=== PATIENT | male | born 1985 | race Asian ===

== ENCOUNTER 2024-12-16 22:46 | Emergency (ER) | payer OTHER ==
[2024-12-16] MEDS ORDERED: Sodium Chloride 0.9% 10 ML Syringe FLUSH PRN (23:07)
[2024-12-16] MEDS ORDERED: Glucagon,Human Recombinant 1 MG Vial IM PRN (23:13)
[2024-12-16] MEDS ORDERED: 50% Dextrose in Water 50 ML Syringe IVPUSH PRN (23:13)
[2024-12-16 23:16] LABS: BASOPHILS ABSOLUTE AUTO 0.1 x10-3/uL (0.0-0.3); BASOPHILS PERCENT AUTO 0.8 % (0.3-3.8); EOSINOPHILS PERCENT AUTO 0.2 % (0.1-6.8); HEMATOCRIT 38.1 % (38.3-50.1); HEMOGLOBIN 13.1 g/dL (12.9-17.7); LYMPHOCYTES ABSOLUTE AUTO 2.5 x10-3/uL (0.5-4.5); MEAN CORPUSCULAR HEMOGLOBIN 29.8 pg (27.0-33.3); MEAN CORPUSCULAR HGB CONC 34.5 g/dL (28.7-35.3); MEAN CORPUSCULAR VOLUME 86.3 fL (80.8-98.7); MEAN PLATELET VOLUME 9.5 fL (6.7-11.0); MONOCYTES ABSOLUTE AUTO 0.8 x10-3/uL (0.0-1.2); MONOCYTES PERCENT AUTO 9.2 % (5.5-15.2); NEUTROPHILS ABSOLUTE AUTO 5.2 x10-3/uL (1.7-6.9); NEUTROPHILS PERCENT AUTO 60.8 % (40.3-71.8); PLATELET COUNT,PLT 218 x10(3)uL (117-477); RED BLOOD CELL COUNT 4.41 x10(6)uL (3.90-5.90); RED CELL DISTRIBUTION WIDTH 11.8 % (12.4-15.0); WHITE BLOOD CELL COUNT,WBC 8.6 x10-3/uL (3.2-10.1)
[2024-12-16 23:18] LABS: BLOOD UREA NITROGEN,BUN 10 mg/dL (7-18); BUN/CREATININE RATIO 9.1 (9-20); CALCIUM 8.9 mg/dL (8.6-10.2); CARBON DIOXIDE,CO2 30 mmol/L (21-32); CHLORIDE,CL 94 mmol/L (100-110); CREATININE 1.1 mg/dL (0.70-1.30); EST CRCL DRUG DOSING (CG) 97.98 mL/min; ESTIMATED GFR 87 mL/min (>60); GLUCOSE RANDOM 331 mg/dL (80-116); POTASSIUM,K 3.9 mmol/L (3.5-5.3); SODIUM,NA 133 mmol/L (135-145)
[2024-12-16] MEDS: Sodium Chloride 0.9% 1,000 ML IV SCH (23:18)
[2024-12-16] MEDS: Insulin Lispro 100 Unit/ML 3 ML KwikPen SUBCUT STA (23:21)
[2024-12-16 23:25] LABS: A/G RATIO 0.9; ALANINE AMINOTRANSFERASE,ALT 40 U/L (12-36); ALBUMIN 3.8 g/dL (3.5-5.2); ALKALINE PHOSPHATASE 69 IU/L (56-112); ASPARTATE AMNIOTRANSFERASE,AST 29 IU/L (5-25); BILIRUBIN TOTAL 0.4 mg/dL (0.1-1.3); PROTEIN TOTAL,TP 7.9 g/dL (6.0-8.0)
[2024-12-16 23:27] LABS: HEMOGLOBIN A1C 11.9 % (<5.7)
== END 2024-12-17 00:34 ==
LOC: FB.ED 22:46
DX: E11.9 Type 2 diabetes mellitus without complications (principal); Z79.84 Long term (current) use of oral hypoglycemic drugs
CPT/HCPCS: 36415; 80053; 82947; 83036; 84484; 85025; 93005; 93010; 96360; 99284; J1815; J7030

== ENCOUNTER 2025-01-13 14:57 | Emergency (ER) | payer OTHER, MEDICAID | END 2025-01-13 15:37 | LOC: FB.ED 14:57 | DX: R59.0 Localized enlarged lymph nodes (principal) | CPT/HCPCS: 99284 ==